=== PATIENT | male | born 1965 | race Caucasian/White ===

== ENCOUNTER 2019-06-17 08:39 | Outpatient (CLI) | payer BC ==
[~2019-06-17] VITALS: Ht 175 cm; Wt 131.0 kg
[2019-06-17] MEDS ORDERED: LISI10TA2 PO (12:52)
[2019-06-17] MEDS ORDERED: PANT40TA2 PO (12:52)
== END 2019-06-17 12:54 | disposition home or self-care (01) ==
LOC: PREOP 08:39
PROVIDERS: ATTEND Surgery
DX: Z01.818 Encounter for other preprocedural examination (principal)

== ENCOUNTER 2019-06-18 12:09 | Day surgery (SDC) | payer BC ==
[2019-06-18] VITALS (15 sets, daily range): BP systolic 112–145; BP diastolic 46–99
[~2019-06-18] VITALS: Ht 175 cm; Wt 131.0 kg
[~2019-06-18 12:09] MED LIST: LISI10TA2 PO; PANT40TA2 PO
[2019-06-18] MEDS ORDERED: NS IV 500 ML 500 ML ONE (12:26)
[2019-06-18] MEDS ORDERED: NS IV 500 ML 500 ML IV PRN (12:29)
[2019-06-18] MEDS ORDERED: LIDOCAINE JELLY 2% 6 ML SYRINGE MM PRN (12:30)
[2019-06-18] MEDS ORDERED: fentaNYL INJECTION 100 MCG/2 ML AMP IVP ONE (12:30)
[2019-06-18] MEDS ORDERED: HURRICAINE EXT TUBE (BENZOCAINE) XX PRN (12:30)
--- NOTE | 2019-06-18 12:40 | Conscious Sedation/ASA ---
Conscious Sedation Pre-Proced Time 12:00 ASA Score 2 For ASA 3 and 4: Consider anesthesia and medical clearance. Also, for patients with a history of failed moderate sedation consider anesthesia. Airway Lungs Heart ASA score ASA 1: a normal healthy patient ASA 2: a patient with a mild systemic disease (mid diabetes, controlled hypertension, obesity ASA 3: a patient with a severe systemic disease that limits activity (angina, COPD, prior Myocardial infarction) ASA 4: a patient with an incapacitating disease that is a constant threat to life (CHF, renal failure) ASA 5: a moribund patient not expected to survive 24 hrs. (ruptured aneurysm) ASA 6: a declared brain- patient whose organs are being harvested. For emergent operations, add the letter E after the classification Mallampati Classification Grade 2 Sedation Plan Analgesia, Amnesia, Plan communicated to team members, Discussed options with patient/fam, Discussed risks with patient/fam The patient is an appropriate candidate to undergo the planned procedure, sedation, and anesthesia. The patient immediately re-assessed prior to indication. PETRA WHALEY MD Jun 18, 2019 12:40 POS
[2019-06-18] MEDS ORDERED: LIDOCAINE JELLY 2% 6 ML SYRINGE ONE (12:42)
[2019-06-18] MEDS ORDERED: MIDAZOLAM 5 MG/5 ML (VERSED) VIAL ONE ×2 (12:42→12:51)
[2019-06-18] MEDS ORDERED: HURRICAINE EXT TUBE (BENZOCAINE) ONE (12:42)
[2019-06-18] MEDS ORDERED: fentaNYL INJECTION 100 MCG/2 ML AMP ONE (12:42)
--- NOTE | 2019-06-18 12:42 | Progress Note-Pre Operative ---
Pre-Operative Progress Note H&P Reviewed The H&P was reviewed, patient examined and no changes noted. Date Seen by Provider: Jun 18, 2019 Time Seen by Provider: 12:00 Date H&P Reviewed: Jun 18, 2019 Time H&P Reviewed: 12:00 Pre-Operative Diagnosis: GERD, dysphagia PETRA WHALEY MD Jun 18, 2019 12:42 POS
--- NOTE | 2019-06-18 12:43 | Discharge Inst-Surgical ---
D/C Lap Instructions-JUDD Follow Up Activity as tolerated High Fiber Diet 25g or more per day Avoid Alcohol, Caffeine, Spicy [place] and Acid foods. Drink 64 fluid oz or more of fluids per day. Symptoms to Report: Fever over 101 degree F, Nausea/Vomiting If any problems/questions: Contact your physician or go to Emergency Room PETRA WHALEY MD Jun 18, 2019 12:43 POS
[2019-06-18] MEDS ORDERED: HYDROcodone/APAP 5 MG/325 MG (LORTAB) TAB PO PRN (12:45)
[2019-06-18] MEDS ORDERED: ACETAMINOPHEN 325 MG TABLET PO PRN (12:45)
[2019-06-18] MEDS ORDERED: morphine INJ 10 MG/ML 1ML (SYR OR VIAL) IVP PRN ×2 (12:45)
[2019-06-18] MEDS ORDERED: ONDANSETRON 4 MG/2 ML (SDV) Z0FRAN IVP PRN (12:45)
[2019-06-18] MEDS: MIDAZOLAM 5 MG/5 ML (VERSED) VIAL IV PRN ×6 (12:45→13:00)
--- NOTE | 2019-06-18 13:47 | Progress Note-Post Operative ---
Post-Operative Progess Note Surgeon (s)/Cashier Associate (s) Surgeon PETRA WHALEY MD Cashier Associate: none Pre-Operative Diagnosis GERD, dysphagia Post-Operative Diagnosis reflux esophagitis(stage 3), moderate distal esophageal stricture. small HH(1cm). moderate gastritis and duodenitis. Procedure & Operative Findings Date of Procedure 06/18/19 Procedure Performed/Findings EGD with bx and balloon dilatation. Anesthesia Type cs Estimated Blood Loss Estimated blood loss (mL): minimal Specimens/Packing Specimens Removed ge jxn, antrum PETRA WHALEY MD Jun 18, 2019 13:47 POS
--- NOTE | 2019-06-18 18:49 | OPERATIVE REPORT ---
DATE OF SERVICE: 06/18/2019 ATTENDING PRIMARY CARE PHYSICIAN: Dr. Pepe Warner. PREOPERATIVE DIAGNOSES: Gastroesophageal reflux disease, dysphagia. POSTOPERATIVE DIAGNOSES: Reflux esophagitis between stage II and III with a distal esophageal stricture, small hiatal hernia approximately 2 cm in size, moderate gastritis and mild duodenitis. PROCEDURE: EGD with biopsy and balloon dilatation. SURGEON: Petra Whaley MD ANESTHESIA: Conscious sedation. ESTIMATED BLOOD LOSS: Minimal. FINDINGS: Reflux esophagitis between stage II and III with a distal esophageal stricture, small hiatal hernia approximately 2 cm in size, moderate gastritis and mild duodenitis. DISPOSITION: The patient tolerated the procedure well. INDICATIONS: The patient is a 53-year-old male referred over to us for one year history of dysphagia while eating with episodes of choking and coughing and he also feels epigastric pressure sensation, which is uncomfortable and this will either reduce on its own or come up. He also does have nocturnal coughing. He was recently started on Protonix and states that has improved his symptoms. He does not report any hematemesis, no coffee ground emesis. DESCRIPTION OF PROCEDURE: The patient was brought to the endoscopy suite, laid in left lateral decubitus position. After adequate IV pain and sedative medications and conscious sedation anesthesia, the mouthpiece was applied. The endoscope was placed in the mouth, visualizing the pharynx and hypopharyngeal region. Vocal cords, epiglottis and vallecula identified and appeared to be normal. Endoscope was then gently intubated into the esophageal opening and esophagus insufflated. The endoscope was then advanced to the first, second and third portion of the esophagus. At the level of the GE junction, a reflux esophagitis between stage II and III identified with a distal esophageal stricture also identified. A biopsy was taken with forceps with visualization of good hemostasis. The endoscope was then advanced through the stricture and the endoscope retroflexed, visualizing a small hiatal hernia approximately 2 cm in size. The Schatzki's ring was also identified on the retroflexed view. A moderate gastritis was noted. No formal ulcerations, polyps, or any neoplasms. A biopsy was taken of the antrum to rule out H. pylori with visualization of good hemostasis. The endoscope was then advanced to the pylorus and the first and second portion of the duodenum where a mild duodenitis identified. No formal ulcerations. We then proceeded with dilatation of the distal esophageal stricture. The balloon was placed in the stomach and pulled back to the stricture to the level of the stricture. The balloon was first dilated to 2 atmospheres of pressure and 18 mm in diameter with no resistance. We then proceeded to 4 atmospheres of pressure and 19 mm in diameter with moderate resistance and left this in place for approximately 60 seconds. The balloon was desufflated and then removed. No mucosal tears were identified as well as no bleeding. The endoscope was then slowly withdrawn while taking a second look and suctioning of residual air with no additional findings. The patient tolerated the procedure well. We will recommend the necessary lifestyle and diet accommodation including small and more frequent meals, avoidance of eating at night as well as head elevation while lying supine. He also needs to avoid caffeinated beverages, spicy, greasy and acidic foods as well as alcoholic beverages. We will have him continue with Protonix daily. If he does become recurrently symptomatic with dysphagia, we will have him return for graded dilatation. Job ID: [id number] DocumentID: [id number] Dictated Date: 06/18/2019 13:11:53 Customer Service Professional Date: 06/18/2019 18:49:22 Dictated By: PETRA WHALEY MD
== END 2019-06-18 14:10 | disposition home or self-care (01) ==
LOC: EDBD → ENDO 12:09
PROVIDERS: ATTEND Surgery
DX: K29.50 Unspecified chronic gastritis without bleeding (principal); K21.0 Gastro-esophageal reflux disease with esophagitis; K22.2 Esophageal obstruction; K44.9 Diaphragmatic hernia without obstruction or gangrene; K29.80 Duodenitis without bleeding; I10 Essential (primary) hypertension; Z88.0 Allergy status to penicillin; Z82.49 Family history of ischemic heart disease and other diseases of the circulatory system
CPT/HCPCS: 88305